=== PATIENT | male | born 1930 | race Asian ===

== ENCOUNTER 2017-11-15 16:17 | Inpatient (IN) | payer OTHER, MEDICARE ==
[~2017-11-15] VITALS: Ht 170.2 cm; Wt 66.9 kg
[2017-11-15 17:53] LABS: PLATELET COUNT 323 x10^3mcL (130-400); RED CELL DISTRIBUTION WIDTH 12.8 % (11.5-14.5)
[2017-11-15 18:28] LABS: BAND NEUTROPHIL 8 % (0-10); BASOPHIL 0 % (0-2); MONOCYTE 5 % (0-7); SEGMENTED NEUTROPHILS 83 % (37-75); rbc morphology (normal/abnorm) ABNORMAL (NORMAL)
[2017-11-15 18:30] LABS: CARBON DIOXIDE 29.2 mmol/L (21-32); CHLORIDE SERUM 89 mmol/L (98-107); GLUCOSE SERUM 220 mg/dL (74-106); POTASSIUM SERUM 4.3 mmol/L (3.5-5.1); SODIUM SERUM 129 mmol/L (136-145)
[2017-11-15 18:34] LABS: ALBUMIN 4.4 g/dL (3.4-5.0); ALKALINE PHOSPHATASE 80 U/L (46-116); ALT/SGPT 35 U/L (16-63); AST/SGOT 29 U/L (15-37); BILIRUBIN TOTAL 1.37 mg/dL (0.20-1.00)
[2017-11-15 18:42] LABS: TOTAL PROTEIN, SERUM 8.3 g/dL (6.4-8.2)
[2017-11-15] MEDS ORDERED: ATORVASTATIN CA40 M1 PO (19:27)
[2017-11-15] MEDS ORDERED: METOPROLOL TART50 MG PO ×2 (19:28→20:44)
[2017-11-15] MEDS ORDERED: TRAMADOL HCL50 MG PO (19:28)
[2017-11-15] MEDS ORDERED: VENTOLIN H0.09 MG/A1 INH (19:29)
[2017-11-15] MEDS ORDERED: MONTELUKAST SOD10 M1 PO (19:29)
[2017-11-15] MEDS ORDERED: OMEPRAZOLE20 M4 PO (19:30)
[2017-11-15] MEDS ORDERED: DIOVAN80 MG PO (19:30)
[2017-11-15] MEDS ORDERED: ADV250/50 INH (19:30)
[2017-11-15] MEDS ORDERED: LINZESS145 MC1 PO (19:31)
[2017-11-15] MEDS ORDERED: ASPIR LOW81 MG PO (19:31)
[2017-11-15] MEDS ORDERED: OXYBUTYNIN CHLOR5 MG PO (19:31)
[2017-11-15 19:44] LABS: UA SPECIFIC GRAVITY >=1.030 (1.005-1.035); microscopic required? YES; urine erythrocyte NEGATIVE (NEGATIVE)
[2017-11-15 21:48] LABS: T3 TOTAL 0.92 ng/mL
[2017-11-15 21:50] LABS: FREE T4 1.26 ng/dL (0.76-1.46); FREE THYROXINE INDEX 3.8 ug/dL (1.4-4.5); T4(THYROXINE) 11.1 ug/dL (4.7-13.3)
[2017-11-15 22:06] LABS: MAGNESIUM 2.5 mg/dL (1.8-2.4); PHOSPHOROUS 4.5 mg/dL (2.5-4.9)
[2017-11-15 22:16] VITALS: BP 137/69
[2017-11-16 06:25] LABS: PLATELET COUNT 287 x10^3mcL (130-400); RED CELL DISTRIBUTION WIDTH 12.9 % (11.5-14.5)
[2017-11-16 06:26] VITALS: BP 96/63
[2017-11-16 06:30] LABS: CALCIUM 9.6 mg/dL (8.5-10.1); CARBON DIOXIDE 27.5 mmol/L (21-32); CHLORIDE SERUM 95 mmol/L (98-107); CHOLESTEROL 144 mg/dL (<200); CHOLESTEROL/HDL RATIO 1.9; CREATININE SERUM 1.2 mg/dL (0.7-1.3); GLUCOSE SERUM 162 mg/dL (74-106); HDL CHOLESTEROL 76 mg/dL (40-60); POTASSIUM SERUM 3.4 mmol/L (3.5-5.1); SODIUM SERUM 135 mmol/L (136-145); TRIGLYCERIDES 68 mg/dL (<150)
[2017-11-16 08:10] VITALS: BP 117/55
[2017-11-16 08:59] LABS: BAND NEUTROPHIL 9 % (0-10); BASOPHIL 0 % (0-2); MONOCYTE 7 % (0-7); SEGMENTED NEUTROPHILS 79 % (37-75)
[2017-11-16 09:00] LABS: PLATELET MORPHOLOGY PLATELETS NORMAL
[2017-11-16 16:25] VITALS: BP 85/47
[2017-11-16 18:05] VITALS: BP 91/50
[2017-11-16 20:14] VITALS: Ht 170.2 cm; Wt 66.9 kg
[2017-11-16 22:05] VITALS: BP 132/63
[2017-11-17 05:21] VITALS: BP 122/65
[2017-11-17 07:16] LABS: BASOPHIL % 0.1 % (0-2); PLATELET COUNT 250 x10^3mcL (130-400); RED CELL DISTRIBUTION WIDTH 13.2 % (11.5-14.5)
[2017-11-17 07:31] LABS: CALCIUM 8.8 mg/dL (8.5-10.1); CARBON DIOXIDE 27.5 mmol/L (21-32); CHLORIDE SERUM 100 mmol/L (98-107); CREATININE SERUM 0.9 mg/dL (0.7-1.3); GLUCOSE SERUM 91 mg/dL (74-106); MAGNESIUM 2.3 mg/dL (1.8-2.4); PHOSPHOROUS 3.1 mg/dL (2.5-4.9); SODIUM SERUM 139 mmol/L (136-145)
[2017-11-17 09:17] VITALS: BP 146/69
[2017-11-17 12:24] VITALS: BP 134/71
[2017-11-17 16:23] VITALS: BP 114/61
[2017-11-17 21:09] VITALS: BP 122/56
[2017-11-18 05:18] VITALS: BP 108/61
[2017-11-18 06:36] LABS: CALCIUM 8.5 mg/dL (8.5-10.1); CARBON DIOXIDE 25.9 mmol/L (21-32); CHLORIDE SERUM 107 mmol/L (98-107); CREATININE SERUM 0.7 mg/dL (0.7-1.3); GLUCOSE SERUM 111 mg/dL (74-106); MAGNESIUM 2.3 mg/dL (1.8-2.4); PHOSPHOROUS 1.8 mg/dL (2.5-4.9); POTASSIUM SERUM 3.9 mmol/L (3.5-5.1); SODIUM SERUM 139 mmol/L (136-145)
[2017-11-18 06:42] LABS: BASOPHIL % 0.2 % (0-2); PLATELET COUNT 241 x10^3mcL (130-400); RED CELL DISTRIBUTION WIDTH 12.8 % (11.5-14.5)
[2017-11-18 08:00] VITALS: BP 112/61; BP 164/73
[2017-11-18] MEDS ORDERED: ATORVASTATIN CA40 M1 PO (11:34)
[2017-11-18] MEDS ORDERED: MIRUD PO (11:40)
[2017-11-18 11:52] VITALS: BP 156/66
[2017-11-18 13:54] VITALS: BP 156/66
== END 2017-11-18 14:59 | disposition home or self-care (01) | DRG 247 ==
LOC: ED 16:17 → DU 19:04 → MU 11-18 10:07
PROVIDERS: Emergency Medicine; Family Medicine; Student in an Organized Health Care Education/Training Program
DX: K56.51 Intestinal adhesions [bands], with partial obstruction (principal); N17.0 Acute kidney failure with tubular necrosis; E87.1 Hypo-osmolality and hyponatremia; E87.6 Hypokalemia; I10 Essential (primary) hypertension; I25.10 Atherosclerotic heart disease of native coronary artery without angina pectoris; J45.909 Unspecified asthma, uncomplicated; E78.5 Hyperlipidemia, unspecified; Z68.27 Body mass index [BMI] 27.0-27.9, adult; Z95.1 Presence of aortocoronary bypass graft; Z85.46 Personal history of malignant neoplasm of prostate
CPT/HCPCS: 83880; 84439; A9698; C9113; J0696; J1200; J2405; J2543; J2765; J3010; J3370; J3480; J3490; J7030; J7040; J7050; Q0092; Q9967

== ENCOUNTER 2018-09-07 13:21 | Inpatient (IN) | payer OTHER, MEDICARE ==
[~2018-09-07] VITALS: Ht 160 cm; Wt 70.8 kg
[~2018-09-07 13:21] MED LIST: ADV250/50 INH; ASPIR LOW81 MG PO; ATORVASTATIN CA40 M1 PO; DIOVAN80 MG PO; LINZESS145 MC1 PO; METOPROLOL TART50 MG PO; MIRUD PO; MONTELUKAST SOD10 M1 PO; OMEPRAZOLE20 M4 PO; OXYBUTYNIN CHLOR5 MG PO; TRAMADOL HCL50 MG PO; VENTOLIN H0.09 MG/A1 INH
[2018-09-07 13:49] VITALS: Ht 160 cm; Wt 70.8 kg
[2018-09-07 14:03] LABS: BASOPHIL % 0.3 % (0-2); PLATELET COUNT 293 x10^3mcL (130-400); RED CELL DISTRIBUTION WIDTH 13.3 % (11.5-14.5)
[2018-09-07 14:18] LABS: CALCIUM 8.9 mg/dL (8.5-10.1); CARBON DIOXIDE 28.9 mmol/L (21-32); CHLORIDE SERUM 96 mmol/L (98-107); CREATININE SERUM 0.7 mg/dL (0.7-1.3); GLUCOSE SERUM 134 mg/dL (74-106); POTASSIUM SERUM 4.2 mmol/L (3.5-5.1); SODIUM SERUM 128 mmol/L (136-145)
[2018-09-07 16:58] LABS: T3 TOTAL 0.84 ng/mL
[2018-09-07 17:00] LABS: CHOLESTEROL/HDL RATIO 2.7; MAGNESIUM 2.7 mg/dL (1.8-2.4); PHOSPHOROUS 3.4 mg/dL (2.5-4.9)
[2018-09-07 17:06] VITALS: BP 131/65
[2018-09-07 17:06] LABS: FREE T4 1.05 ng/dL (0.76-1.46); FREE THYROXINE INDEX 2.8 ug/dL (1.4-4.5); T4(THYROXINE) 8.1 ug/dL (4.7-13.3)
[2018-09-07] MEDS ORDERED: DIOVAN40 MG (18:34)
[2018-09-07 19:29] LABS: microscopic required? NO
[2018-09-07 19:38] LABS: UA SPECIFIC GRAVITY <=1.005 (1.005-1.035); urine erythrocyte NEGATIVE (NEGATIVE)
[2018-09-07 19:52] LABS: AMPHETAMINE QUAL UR NONE DETECTED (See below)
[2018-09-07 22:13] VITALS: BP 103/53
[2018-09-08 05:47] VITALS: BP 127/61
[2018-09-08 06:34] LABS: BASOPHIL % 0.2 % (0-2); PLATELET COUNT 268 x10^3mcL (130-400); RED CELL DISTRIBUTION WIDTH 13.3 % (11.5-14.5)
[2018-09-08 06:35] LABS: CALCIUM 9.1 mg/dL (8.5-10.1); CARBON DIOXIDE 25.6 mmol/L (21-32); CHLORIDE SERUM 101 mmol/L (98-107); CREATININE SERUM 0.7 mg/dL (0.7-1.3); GLUCOSE SERUM 127 mg/dL (74-106); MAGNESIUM 2.7 mg/dL (1.8-2.4); PHOSPHOROUS 3.3 mg/dL (2.5-4.9); POTASSIUM SERUM 4.5 mmol/L (3.5-5.1); SODIUM SERUM 134 mmol/L (136-145)
[2018-09-08 13:50] VITALS: BP 120/69
[2018-09-08 17:26] VITALS: BP 103/58
[2018-09-08 21:18] VITALS: BP 103/52
[2018-09-09 05:44] VITALS: BP 138/70
[2018-09-09 06:44] LABS: BASOPHIL % 0.3 % (0-2); PLATELET COUNT 261 x10^3mcL (130-400); RED CELL DISTRIBUTION WIDTH 13.4 % (11.5-14.5)
[2018-09-09 07:18] LABS: CALCIUM 8.7 mg/dL (8.5-10.1); CARBON DIOXIDE 25.4 mmol/L (21-32); CHLORIDE SERUM 100 mmol/L (98-107); CREATININE SERUM 0.7 mg/dL (0.7-1.3); GLUCOSE SERUM 119 mg/dL (74-106); MAGNESIUM 2.4 mg/dL (1.8-2.4); PHOSPHOROUS 3.4 mg/dL (2.5-4.9); POTASSIUM SERUM 4.2 mmol/L (3.5-5.1); SODIUM SERUM 132 mmol/L (136-145)
[2018-09-09 09:25] VITALS: BP 138/73
[2018-09-09] MEDS ORDERED: RAN500A PO (09:41)
[2018-09-09] MEDS ORDERED: [UNRECOGNIZED DRUG - CODE] TD (12:05)
[2018-09-09] MEDS ORDERED: NITROGLYCERIN0.4 MG SL (12:06)
[2018-09-09 12:08] VITALS: BP 157/55
[2018-09-09] MEDS ORDERED: COLACE100 MG PO (15:57)
[2018-09-09 16:49] VITALS: BP 157/55
== END 2018-09-09 18:20 | disposition home or self-care (01) | DRG 198 ==
LOC: ED 13:21 → DU 15:55
PROVIDERS: Emergency Medicine; Family Medicine
DX: I25.119 Atherosclerotic heart disease of native coronary artery with unspecified angina pectoris (principal); E11.65 Type 2 diabetes mellitus with hyperglycemia; E83.41 Hypermagnesemia; I34.0 Nonrheumatic mitral (valve) insufficiency; E87.1 Hypo-osmolality and hyponatremia; I36.1 Nonrheumatic tricuspid (valve) insufficiency; R00.1 Bradycardia, unspecified; E78.5 Hyperlipidemia, unspecified; I10 Essential (primary) hypertension; J45.909 Unspecified asthma, uncomplicated; Z68.27 Body mass index [BMI] 27.0-27.9, adult; Z95.1 Presence of aortocoronary bypass graft; Z85.46 Personal history of malignant neoplasm of prostate; Z82.49 Family history of ischemic heart disease and other diseases of the circulatory system; Z83.3 Family history of diabetes mellitus; Z80.0 Family history of malignant neoplasm of digestive organs; K59.00 Constipation, unspecified
CPT/HCPCS: 82962; 83880; 84439; A9500; J1650; J2785; J3010; J3535; J7030; Q0092